=== PATIENT | female | born 1970 | race Caucasian/White ===

== ENCOUNTER → 2016-11-18 | Outpatient (CLI) | payer OTHER ==
--- NOTE | 2016-11-18 18:43 | REP ---
MAXILLOFACIAL CT WITHOUT CONTRAST: HISTORY: Chronic maxillary sinusitis. 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 The remaining sinuses are clear. The osteomeatal units are patent. The middle and inferior nasal turbinates are partially paradoxical. There is alfredo bullosa of the middle nasal turbinates. There is mild deviation of the nasal septum to the right. The cribriform plate, medial stovall of the orbits and optic canals are intact. The carotid canals form a segment of the posterolateral stovall of the sphenoid sinus. The sphenoid sinus septum inserts into left internal carotid canal wall. IMPRESSION: 1. There is no acute or chronic sinusitis. 2. 6 mm right ethmoid sinus osteoma. Signed by Markie Etienne MD 11/18/2016 06:50 P
== END ==
LOC: M RAD 17:40
PROVIDERS: ATTEND Otolaryngology
DX: D16.4 Benign neoplasm of bones of skull and face (principal)

== ENCOUNTER → 2018-03-18 | Outpatient (CLI) | payer OTHER | LOC: M WHC 15:08 | DX: Z12.31 Encounter for screening mammogram for malignant neoplasm of breast (principal) | CPT/HCPCS: 77067 ==

== ENCOUNTER → 2018-10-05 | Outpatient (REF) | payer OTHER | LOC: M LAB REF 16:59 | DX: N39.0 Urinary tract infection, site not specified (principal) | CPT/HCPCS: 87086 ==

== ENCOUNTER → 2018-11-03 | Outpatient (REF) | payer OTHER ==
[2018-11-03 21:05] LABS: APPEARANCE, URINE CLEAR (CLEAR); BACTERIA, URINE AUTO NEGATIVE (NEGATIVE); BILIRUBIN, URINE AUTO NEGATIVE (NEGATIVE); BLOOD, URINE BLOOD 1+ (NEGATIVE); COLOR, URINE YELLOW (YELLOW); GLUCOSE, URINE (UA) AUTO NEGATIVE (NEGATIVE); KETONE, URINE AUTO NEGATIVE (NEGATIVE); LEUKOCYTE ESTERASE, URINE AUTO 1+ (NEGATIVE); MUCUS, URINE SMALL (NEGATIVE); NITRITE, URINE AUTO NEGATIVE (NEGATIVE); PROTEIN, URINE AUTO NEGATIVE (NEGATIVE); RBC, URINE AUTO 5 /HPF (0-3); SPECIFIC GRAVITY URINE AUTO 1.021 (1.002-1.035); SQUAMOUS EPITHELIAL CELL UR AU 1 /HPF (0-6); UROBILINOGEN, URINE AUTO 0.2 mg/dL (0.0-2.0); WBC, URINE AUTO 3 /HPF (0-3)
[2018-11-03 22:58] LABS: CHLAMYDIA DNA AMPLIFICATION NEGATIVE (NEGATIVE); GC DNA AMPLIFICATION NEGATIVE (NEGATIVE)
== END ==
LOC: M SMT 17:13
PROVIDERS: ATTEND Nurse Practitioner Women's Health
DX: R30.0 Dysuria (principal); R31.29 Other microscopic hematuria

== ENCOUNTER → 2018-11-10 | Outpatient (CLI) | payer OTHER ==
[~2018-11-10] MED LIST: ISOVUE-370 76% 100ML VIAL (Q9967) As Ordered ONE
--- NOTE | 2018-11-11 06:13 | REP ---
Clinical: Microscopic hematuria. Technique: Axial precontrast, contrast enhanced, and delayed images of the abdomen and pelvis using 100 ml Isovue 370 intravenous contrast material with coronal and sagittal re-formations. Comparison: None. Findings: Evaluation of the urinary tract system demonstrates 1.1 cm right simple renal cyst along with 0.9 cm, 1.3 cm, and 1.4 cm left simple renal cysts. No intrarenal or obstructing ureteral calculi are identified and there is no evidence for perinephric stranding or hydroureteronephrosis. The bilateral collecting systems on delayed images appear normal. The bladder is unremarkable. Liver includes 1 cm and 4.3 cm low density lesions within the right lobe most compatible with cysts. Spleen, pancreas, and bilateral adrenal glands are normal. Cholelithiasis noted without evidence for acute cholecystitis. The enteric system is without obstruction or acute inflammatory process. Normal cecum and terminal ileum identified in the right lower quadrant. 3 cm fat containing periumbilical hernia identified. Pelvis demonstrates normal bladder and age-appropriate retroverted uterus/adnexa. No ascites. No free air. No adenopathy. Abdominal aorta without aneurysm or dissection. Osseous structures are intact. Impression: 1. Bilateral simple renal cysts up to 1.1 cm on the right and 1.4 cm on the left. No further urinary tract pathology appreciated. 2. Relatively benign appearing hepatic cysts in the right lobe measure up to 4.3 cm. 3. A 3 cm fat containing periumbilical hernia is identified. Electronically Signed by Jeffrey Gracia MD 11/11/2018 06:04 A
== END ==
LOC: M RAD 14:44
PROVIDERS: ATTEND Nurse Practitioner Women's Health
DX: N28.1 Cyst of kidney, acquired (principal); K76.89 Other specified diseases of liver; R31.29 Other microscopic hematuria; K42.9 Umbilical hernia without obstruction or gangrene
CPT/HCPCS: 74178; Q9967

== ENCOUNTER → 2019-03-23 | Outpatient (CLI) | payer OTHER, SELFPAY ==
--- NOTE | 2019-03-23 15:43 | REPMRS ---
Patient History The patient states she had a clinical breast exam in 02/2019. Patient has history of other cancer at age 43. Family history of breast cancer at age 30 in maternal cousin. Taking hormonal contraceptives for 9 years. 3D TOMOSYNTHESIS WAS PERFORMED. Digital Woman Screen Mammo: March 23, 2019 - Exam #: [id number] Bilateral CC and MLO view(s) were taken. Technologist: Lavern Pino, Technologist Prior study comparison: March 18, 2018, digital woman screen mammo performed at [facility]. August 27, 2016, digital woman screen mammo performed at [facility]. FINDINGS: The breast tissue is heterogeneously dense. This may lower the sensitivity of mammography. There has been no change in the appearance of the mammogram from the prior studies. There is a moderate amount of residual fibroglandular tissue which is fairly symmetric. There is no interval development of dominant mass, areas of architectural distortion, or clustered microcalcification typical of malignancy. Assessment: BI-RADS/ACR category 1 mammogram. Negative Mammogram. Recommendation Routine screening mammogram in 1 year (for women over age 40). This mammogram was interpreted with the aid of an FDA-approved computer-aided dectection system. Electronically Signed By: Xander Gibbs MD 03/23/19 [id number]
== END ==
LOC: M WHC 13:12
PROVIDERS: ATTEND Nurse Practitioner Women's Health
DX: Z12.31 Encounter for screening mammogram for malignant neoplasm of breast (principal); Z79.3 Long term (current) use of hormonal contraceptives; Z85.9 Personal history of malignant neoplasm, unspecified
CPT/HCPCS: 77063; 77067; G0463

== ENCOUNTER → 2019-05-31 | Outpatient (REF) | payer OTHER, SELFPAY | LOC: M SFHCWAGY 14:02 | PROVIDERS: ATTEND Nurse Practitioner Women's Health | DX: N92.6 Irregular menstruation, unspecified (principal) ==

== ENCOUNTER → 2021-05-30 | Outpatient (CLI) | payer OTHER ==
--- NOTE | 2021-05-30 09:23 | REP ---
INDICATION: SCR MAMMO. COMPARISON: Multiple TECHNIQUE: Digital screening mammography was carried out bilaterally in the CC and MLO projections and compared to the prior exams. Both 2D and 3D modalities were utilized. By history, the patient has no complaints of a palpable breast abnormality or other significant breast complaints. FINDINGS: The breasts are unchanged in size and shape. Once again, scattered dense heterogenous fibroglandular elements are seen bilaterally. In the inner slightly lower aspect of the left breast there is potential jose density. This is near the 9 o'clock position. In the upper outer quadrant of the right breast there is a potential jose density No other suspicious features are seen in either breast. Benign calcifications are again noted. There is no skin thickening or nipple retraction. The Volpara volumetric breast density pattern is b. IMPRESSION: BIRADS/ACR category 0 mammogram. Diagnostic digital DBT spot compression views are recommended in the CC and MLO views bilaterally as described above. In addition, diagnostic ultrasonography may be necessary. This patient's Tyrer-Cuzick lifetime breast cancer risk assessment score is 11%%. This mammogram was interpreted with the aid of an FDA-approved computer-aided detection system. The patient states she had a clinical breast exam in May 2021 . The patient letter being requested is M0 RECOMMENDATION: As above <Electronically signed by Pascual White > 05/30/21 [id number]
== END ==
LOC: M WHC 07:27
PROVIDERS: ATTEND Nurse Practitioner Women's Health
DX: Z12.31 Encounter for screening mammogram for malignant neoplasm of breast (principal); N63.21 Unspecified lump in the left breast, upper outer quadrant; Z12.4 Encounter for screening for malignant neoplasm of cervix
CPT/HCPCS: 77063; 77067; G0123; G0463

== ENCOUNTER → 2021-05-30 | Outpatient (REF) | payer OTHER | LOC: M SFHCWAGY 14:13 | PROVIDERS: ATTEND Nurse Practitioner Women's Health | DX: Z12.4 Encounter for screening for malignant neoplasm of cervix (principal) ==

== ENCOUNTER → 2021-05-30 | Outpatient (CLI) | payer OTHER | LOC: M WHC 07:27 | PROVIDERS: ATTEND Nurse Practitioner Women's Health | DX: Z53.9 Procedure and treatment not carried out, unspecified reason (principal); Z12.31 Encounter for screening mammogram for malignant neoplasm of breast ==

== ENCOUNTER → 2021-06-06 | Outpatient (REF) | payer OTHER | LOC: M WUC 15:49 | PROVIDERS: ATTEND Physician Assistant Medical | DX: J02.9 Acute pharyngitis, unspecified (principal) ==

== ENCOUNTER → 2021-07-13 | Outpatient (CLI) | payer OTHER | LOC: M WHC 10:55 | PROVIDERS: ATTEND Nurse Practitioner Women's Health | DX: Z53.9 Procedure and treatment not carried out, unspecified reason (principal) ==

== ENCOUNTER → 2021-07-16 | Outpatient (CLI) | payer OTHER ==
--- NOTE | 2021-07-16 17:05 | REP ---
INDICATION: ADDL VIEWS/GUSTAVO DIAG MAMMO. COMPARISON: Screening mammogram, 05/30/2021. left breast ultrasound, same day. TECHNIQUE: 2D and 3D focal compression with magnification of both breasts in the CC and MLO orientations were performed. FINDINGS: The patient is a 51-year-old abnormality seen in both breasts on her recent screening mammogram. The Volpara volumetric breast density pattern is B, there are scattered areas of fibroglandular density. The area of architectural distortion, seen in the upper outer quadrant of the right breast, on the recent screening mammogram, is shown to be normal breast tissue.. The isodense focal asymmetry, seen in the left breast, directly deep to the nipple, at the 9 o'clock position, a shown and additional view mammography to be an oval, circumscribed, isodense mass measuring 11 mm in diameter. Ultrasound evaluation of the left breast reveals a multiloculated cyst, without septations, measuring 12 x 9 x 7 mm, corresponding to the mammographic abnormality. IMPRESSION: BIRADS/ACR 2: Benign finding This patient's Tyrer-Cuzick lifetime breast cancer risk assessment score is 11.0%. This mammogram was interpreted with the aid of an FDA-approved computer-aided detection system. The patient letter being requested is M2. RECOMMENDATION: Repeat screening mammography recommended 1 year (for women over 40). <Electronically signed by Yamil Pacheco > 07/16/21 [id number]
--- NOTE | 2021-07-16 17:08 | REP ---
INDICATION: Abnormal mammogram. COMPARISON: Left diagnostic mammogram, same day. TECHNIQUE: Multiple ultrasound images of the left breast were obtained. FINDINGS: The patient is a 51-year-old abnormality seen in both breasts on her recent screening mammogram. The isodense focal asymmetry, seen in the left breast, directly deep to the nipple, at the 9 o'clock position, a shown and additional view mammography to be an oval, circumscribed, isodense mass measuring 11 mm in diameter. Ultrasound evaluation of the left breast reveals a multiloculated cyst, without septations, measuring 12 x 9 x 7 mm, and a oval cyst measuring 9 x 8 x 7 mm, at the 9 o'clock area, corresponding to the area of the mammographic abnormality. IMPRESSION: Benign cyst, left breast. BI-RADS category 2: Benign finding. <Electronically signed by Yamil Pacheco > 07/16/21 [id number]
== END ==
LOC: M WHC 12:42
PROVIDERS: ATTEND Nurse Practitioner Women's Health
DX: R92.2 Inconclusive mammogram (principal); N60.02 Solitary cyst of left breast
CPT/HCPCS: 76642; 77066; G0279

== ENCOUNTER 2022-04-15 12:29 | Day surgery (SDC) | payer OTHER ==
[~2022-04-15] VITALS: Ht 154.9 cm; Wt 69.9 kg
[~2022-04-15 12:29] MED LIST changes: +DIAZ5TAB; +DICL75TA; +GABA-1171; +GABA-282; +HYOS1TAB; -ISOVUE-370 76% 100ML VIAL (Q9967) As Ordered ONE; +LEVO1.5T2; +NS 1,000 ML IV ONE; +OMEP40CA5; +PHEN-501; +TRAM50TA2; +VALA1TAB5; +ZOLP6.2517
[2022-04-15] MEDS ORDERED: fentaNYL 100 MCG/2 ML INJECTION As Ordered ONE (13:29)
[2022-04-15 14:14] VITALS: BP 135/73
== END 2022-04-15 14:17 | disposition home or self-care (01) ==
LOC: M OPP 12:29
PROVIDERS: ATTEND Internal Medicine Gastroenterology
DX: K21.00 Gastro-esophageal reflux disease with esophagitis, without bleeding (principal); K44.9 Diaphragmatic hernia without obstruction or gangrene; R12 Heartburn; Z79.3 Long term (current) use of hormonal contraceptives; Z79.899 Other long term (current) drug therapy; Z79.891 Long term (current) use of opiate analgesic; Z88.5 Allergy status to narcotic agent
CPT/HCPCS: 43239; 88305; 88342; J3010

== ENCOUNTER 2022-06-26 08:32 | Day surgery (SDC) | payer OTHER ==
[~2022-06-26] VITALS: Ht 154.9 cm; Wt 71.7 kg
[~2022-06-26 08:32] MED LIST changes: -DIAZ5TAB; +DIAZ5TAB PO; -DICL75TA; +DICL75TA PO; -GABA-1171; +GABA-1171 PO; -GABA-282; +GABA-282 PO; -HYOS1TAB; +HYOS1TAB PO; +MICR1TAB16 PO; -NS 1,000 ML IV ONE; -OMEP40CA5; +OMEP40CA5 PO; -PHEN-501; +PHEN-501 PO; -TRAM50TA2; +TRAM50TA2 PO; -VALA1TAB5; +VALA1TAB5 PO; -ZOLP6.2517; +ZOLP6.2517 PO
[2022-06-26] MEDS ORDERED: LIDOCAINE 2% 100MG/5ML SDV (FOR ANES.) As Ordered ONE (09:17)
[2022-06-26] MEDS ORDERED: MIDAZOLAM INJ 2MG/2ML VIAL (J2250 PER 1MG) As Ordered ONE (09:17)
[2022-06-26] MEDS ORDERED: propofoL 200 MG/20 ML VIAL As Ordered ONE (09:17)
[2022-06-26] MEDS ORDERED: fentaNYL 100 MCG/2 ML INJECTION As Ordered ONE (09:17)
[2022-06-26] MEDS ORDERED: ceFAZolin 2 GM/D5W 50 ML IV BAG (J0690 PER 500MG) As Ordered ONE (09:18)
[2022-06-26] MEDS ORDERED: LIDOCAINE 1% SDV 30ML VIAL As Ordered ONE (09:26)
[2022-06-26] MEDS ORDERED: BUPIVACAINE HCL 0.5% 30ML VIAL As Ordered ONE (09:27)
[2022-06-26] MEDS ORDERED: ceFAZolin SOD 2 GM in IV 1 EA IV ONE (10:00)
[2022-06-26] MEDS ORDERED: HYDR-3713 PO (10:34)
[2022-06-26 11:35] VITALS: BP 128/69
[2022-06-26] MEDS ORDERED: IBUP1TAB7 PO (12:31)
== END 2022-06-26 11:35 | disposition home or self-care (01) ==
LOC: M SDC 08:32
PROVIDERS: ATTEND Podiatrist Foot & Ankle Surgery
DX: M21.6X1 Other acquired deformities of right foot (principal); K58.8 Other irritable bowel syndrome; K21.9 Gastro-esophageal reflux disease without esophagitis; Z79.899 Other long term (current) drug therapy; Z88.5 Allergy status to narcotic agent
CPT/HCPCS: 28122; 88304; 88311; J0690; J2250; J3010

== ENCOUNTER → 2022-11-05 | Outpatient (CLI) | payer OTHER ==
[~2022-11-05] MED LIST changes: +HYDR-3713 PO; +IBUP1TAB7 PO; -MICR1TAB16 PO; +NORE1TAB86 PO
== END ==
LOC: M WHC 11:08
PROVIDERS: ATTEND Advanced Practice Midwife
DX: Z12.31 Encounter for screening mammogram for malignant neoplasm of breast (principal)

== ENCOUNTER → 2022-11-05 | Outpatient (REF) | payer OTHER | LOC: M PLALAB 14:09 | PROVIDERS: ATTEND Advanced Practice Midwife | DX: Z12.4 Encounter for screening for malignant neoplasm of cervix (principal); R87.610 Atypical squamous cells of undetermined significance on cytologic smear of cervix (ASC-US) | CPT/HCPCS: 87624; G0123 ==

== ENCOUNTER → 2024-03-03 | Outpatient (CLI) | payer OTHER ==
[~2024-03-03] MED LIST changes: -ZOLP6.2517 PO; +ZOLP6.2526 PO
== END ==
LOC: M WHC 10:24
PROVIDERS: ATTEND Obstetrics & Gynecology
DX: Z12.31 Encounter for screening mammogram for malignant neoplasm of breast (principal)

== ENCOUNTER → 2024-07-09 | Outpatient (CLI) | payer OTHER ==
[~2024-07-09] MED LIST changes: +NORE-30 PO; -NORE1TAB86 PO
== END ==
LOC: M RAD 08:58
PROVIDERS: ATTEND Nurse Practitioner Family
DX: K76.89 Other specified diseases of liver (principal); N28.1 Cyst of kidney, acquired; K80.20 Calculus of gallbladder without cholecystitis without obstruction